=== PATIENT | male | born 1990 | race Caucasian/White ===

== ENCOUNTER 2024-07-16 11:11 | Outpatient (AMB) | payer OTHER, SELFPAY ==
--- NOTE | 2024-07-16 11:12 | A.OFFPC_ITS ---
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 Intake Note: patient here for new patient visit Maxillofacial Pathology Required: No Allergies No Known Allergies Allergy (Verified 07/16/24 12:19) Medication List - Last Reconciled 07/16/24 by Huseyin Ramos CNP No Known Home Meds Tobacco use date assessed: 07/16/24 Dental Screening Dental Screen Date: 07/16/24 Did you have a dental visit in the last 12 months?: No Did you have a dental problem in the last 6 months where you did not have access to dental care?: No Was dental information given to patient?: Patient has dentist HPI HPI Comments History of Present Illness Details 33-year-old male presents to establish c are. Prior PCP? - [facility] Last office visit/CPE/labs - 10 years ago Acute issue(s) - Hypertension: Have never been on antih ypertensives. No history of headache or visual disturbances with his elevated blood pressures. He believes his elevated blood pressure is stress induced. - Anxiety and depression: Reports contro lled anxiety and depression symptoms. History of SSRI until 8-9 years ago. Does not follow by a therapist or psychiatrist and does not have a history with them; he does not want a referral for both at this time. He declines psychotropic medication at this time. - No acute symptoms at this time. Past Medical History - hypertension, GERD, IBS, anxiety, depr ession, alcohol use disorder, opioids abuse, tendinitis left hand, myopia (wears contact) Surgical History - Left hand/tendinitis repair Family History - Dad: Colon cancer - Mom: Hypertension, hyperlipidemia - MGF: Alcohol use disorder, diabetes, hypertension, hyperlipidemia - MGM: Diabetes, hypertension, hyperlip idemia - PGF: Cardiovascular disease, diabetes , hyperlipidemia Social History - Former cigarettes smoker, 1-2 pack x 1 5 years, quit 2 years ago. Vapes nicotine daily. Use nicotine pouches daily. Drinks 6-12 beers and occasional shots vodka nightly, has been drinking this much for the past 1-2 years, has been drinking for a total of 15 years. Smokes 2 g cannabis daily - Has been making healthy dietary choice s, however, he consumes processed foods which are high in sodium. Walks daily. Does not generally sleep well due to having a 4-year-old son who keeps him awake at night Health maintenance - Last eye exam was 6 months ago. Does n ot recall name of eye doctor or practice. He will sign a release for his PCP to obtain his eye record - Last dental visit was over a years ago ; encouraged to schedule an appointment with his dentist for routine dental care. He has a dental appointment in the next few months - Last tetanus vaccine was 6-10 years ag o; He will review his record and update vaccine as needed - Has not been vaccinated for the flu season; declines vaccination [facility] Medical History (Updated 07/16/24 @ 15:00 by Huseyin Ramos CNP) Tendinitis Drug addiction Alcohol abuse Depression Anxiety Acid reflux IBS (irritable bowel syndrome) High blood pressure Family History (Updated 07/16/24 @ 11:33 by Feli Samaniego) Maternal Grandfather Alcohol abuse High blood pressure High cholesterol Diabetes Mother High blood pressure High cholesterol Maternal Grandmother High blood pressure High cholesterol Diabetes Paternal Grandfather High cholesterol Diabetes Cardiovascular disease Father Colon cancer Social History (Updated 07/16/24 @ 11:35 by Feli Samaniego) Housing: House Patient Tobacco Use Status: Former Tobacco user Cigarette Packs Per Day: 1 Cigarettes Per Day: 20 Years Smoked: 10 plus e-Cigarette/Vaping Use: Currently Using Second Hand Smoke Exposure: No Substance Use Type: Marijuana and Opiates service: No Current occupational status: employed Current occupation: [employer] Current occupational exposures/hazards: No Cognitive needs: No Hearing needs: No Vision needs: No Questionnaire PHQ-9 Over the last 2 weeks, how often have you been bothered by any of the following problems? 1. Little interest or pleasure in doing things: several days 2. Feeling down, depressed, or hopeless: several days 3. Trouble falling or staying asleep, or sleeping too much: several days 4. Feeling tired or having little energy: more than half the days 5. Poor appetite or overeating: not at all 6. Feeling bad about yourself - or that you are a failure or have let yourself or your family down: not at all 7. Trouble concentrating on things, such as reading the newspaper or watching television: nearly every day 8. Moving or speaking so slowly that other people could have noticed. Or the opposite - being so fidgety or restless that you have been moving around a lot more than usual: not at all 9. Thoughts that you would be better off or of hurting yourself in some way: not at all Total score: 8 Depression Screening Interpretation: Positive Depression Screening Follow-up: Existing condition and Declines treatment Depression Screening Done: Yes 91250 - PHQ-9 Billing: Yes Source: Developed by Drs. Kyler Henderson, Silva Salas, Chucky Payne and colleagues, with an educational umang from [employer]. Thrive Questionnaire Date Thrive assessed: 07/16/24 I am a: Patient What is your living situation today?: I have a steady place to live Within the past 12 months, did the food you bought not last and you didn't have the money to get more?: Never true Within the past 12 months, did you worry whether your food would run out before you got money to buy more?: Never true Do you have trouble paying for medicines?: No Do you have trouble getting transportation to medical appointments?: No Do you have trouble paying your heating and electricity bill?: Yes Do you have trouble taking care of your child, family member or friend?: No Do you have trouble with day-to-day activities such as bathing, preparing meals, shopping, managing finances, etc.?: No Are you currently unemployed and looking for a job?: No Are you interested in more education?: No Please select the resources that you would like help with: None Currently or been in a relationship where the following occur: No concerns reported THRIVE Score: 1 AUDIT C Alcohol Use Questionnaire (AUDIT-C) 1. How often do you have a drink containing alcohol?: 4 or more times a week 2. How many drinks containing alcohol do you have on a typical day when you are drinking?: 7 to 9 (6-12 drinks) 3. How often do you have six or more drinks on one occasion?: Daily or almost daily Total Score: 11 Score Reviewed/Action Taken: Yes NATAN-7 AMB Questionnaire NATAN-7 Date NATAN - 7 assessed: 07/16/24 Feeling nervous, anxious, or on edge: 3 = Nearly every day Not being able to stop or control worryin = More than half the days Worrying too much about different things: 1 = Several days Trouble relaxin = Nearly every day Being so restless that it is hard to sit still: 1 = Several days Becoming easily annoyed or irritable: 3 = Nearly every day Feeling afraid as if something awful might happen: 0 = Not at all Total NATAN-7 score (0-4 normal; 5-9 mild; 10-14 moderate; 15-21 severe): 13 Source: Developed by Drs. Kyler Henderson, Silva Salas, Chucky Payne and colleagues, with an educational umang from [employer]. Review of Systems Const Details: Denies chills, Denies fatigue, Denies fever(s), Denies headache(s) and Denies weakness HEENT Denies change in vision, Denies dizziness, Denies headache(s), Denies hearing loss, Denies nasal congestion, Denies sinus pain, Denies sinus pressure and Denies sore throat Card Denies chest pain, Denies lightheadedness, Denies dyspnea and Denies other (palpitations) Resp Denies cough, Denies dyspnea and Denies wheezing GI Denies abdominal pain, Denies melena, Denies hematochezia, Denies change in bowel habits, Denies dyspepsia and Denies nausea Denies hematuria and Denies dysuria Musc Denies abnormal gait, Denies myalgias, Denies arthralgias, Denies numbness and Denies tingling Skin/Breast Denies rash, Denies unusual bruising and Denies wounds Neuro Denies abnormal gait, Denies dizziness, Denies headache(s), Denies memory loss, Denies numbness, Denies Sensory deficit (Neuro), Denies tingling and Denies weakness Psych Reports anxiety, Reports depression and Denies memory loss Endo Denies cold intolerance, Denies fatigue, Denies heat intolerance, Denies polydipsia and Denies polyuria Beto/Lymph Denies easy bleeding and Denies easy bruising Aller/Immun Denies wheezing Physical exam (Primary Care) Vital Signs: Last Vital Signs Temp 98.0 F 07/16/24 11:21 Pulse 76 07/16/24 12:42 Resp 16 07/16/24 11:21 BP 160/120 H 07/16/24 12:42 Pulse Ox 97 07/16/24 11:21 Oxygen Delivery Method Room Air 07/16/24 11:21 BMI result Body Mass Index 28.6 Tobacco/Smoking Status: Tobacco use Status Tobacco use date assessed 07/16/24 07/16/24 11:20 Patient Tobacco Use Status Former Tobacco user 07/16/24 11:35 e-Cigarette/Vaping Use Currently Using 07/16/24 11:35 PHQ-9: PHQ-9 Score PHQ-9: Total score 8 07/16/24 12:40 Depression Screening Interpretation: Positive Depression Screening Follow-up: Existing condition and Declines treatment Thrive Assessment: Date of Thrive Assessment Date Thrive assessed 07/16/24 07/16/24 11:15 Currently or been in a relationship where the following occur: No concerns reported Const Other: General: no acute distress, well developed, alert and awake Nutritional Appearance: well nourished Orientation/consciousness: patient oriented x3 HENMT Head: Yes normocephalic and Yes atraumatic Ears: hearing grossly normal bilaterally and TM's normal bilaterally General nose exam: Normal external nose present and Normal nares present Mouth: Normal oral and palatal mucosa present and moist mucous membranes Teeth and gingiva: dentition normal Throat: Yes oropharynx normal Eyes Pupils: Equal, round and reactive pupils present and Pupil accommodation reflex normal EOM: EOMs intact bilaterally Neck Neck: Yes normal visual inspection, Yes no lymphadenopathy and Yes trachea midline Thyroid: Thyroid normal Carotids: no bruits Lymphatic: no lymphadenopathy noted Chest Chest palpation & inspection: normal inspection of the chest Resp Effort & Inspection: normal respiratory effort Auscultation: clear to auscultation bilaterally Cardio Rate: regular rate Rhythm: regular rhythm Heart sounds: S1 normal heart sound present, S2 normal heart sound present, no gallops, no murmurs and no rubs Bruits: no abdominal aortic bruits and no carotid bruits GI Palpation (GI): No Abdominal aortic bruit present, Soft to palpation, nontender, No hepatosplenomegaly present and No Rebound tenderness present Auscultation: normal bowel sounds General: Yes no CVA tenderness Back/Spine/Pelvis Back: no CVA tenderness Cervical Spine: cervical ROM normal and No Cervical spine tenderness Thoracic/Lumbar Spine: thoraco-lumbar ROM normal, No pain with thoraco-lumbar ROM, No thoracic spinal tenderness and No lumbar spinal tenderness Skin General: warm and dry. Normal skin color. Normal skin turgor Lesions: no lesions Rashes: no rashes Trauma: no lacerations or abrasions Wounds: no wounds Nails: normal Neuro General: patient oriented x3, gait normal and CN's II-XI intact bilaterally Cranial nerves: Yes Equal, round and reactive pupils present Cognition (Neuro): normal cognition Gait exam (Neuro): Normal gait present Motor exam (neuro): 5/5 motor strength present throughout Sensory Exam: No Sensory deficit (Neuro) Deep tendon reflexes (DTR's): Right patellar reflex intensity grade: 2+ and Left patellar reflex intensity grade: 2+ Extrem General: Yes normal to inspection, No edema and No calf tenderness Psych Appearance: grossly normal Affect: normal affect Attitude: cooperative Thought process: Normal thought process present Office Procedures EKG Details: EKG today revealed sinus rhythm with left ventricular hypertrophy; normal QTC. 46696-Nevmbzfgpeqwgsovq, Complete Coding Level of Care Code New Pt Level 4 (11413) New Pt Prev Care 18-39yr(82622 Diagnoses Normal routine history and physical examination Z00.00 High blood pressure I10 Anxiety and depression F41.9; F32.A Alcohol use disorder F10.90 Engages in vaping Z72.89 Laboratory tests ordered as part of a complete physical exam (CPE) Z00.00 Left ventricular hypertrophy I51.7 CPT Codes EKG - CPT: 97852-Lofqulgqrujpsdmgu, Complete ([id number]) Additional Codes PHQ-9 - 06081 - PHQ-9 Billing: Yes ([id number]) Assessment & Plan Assessment & Plan (1) Normal routine history and physical examination: Code(s): Z00.00 - Encounter for general adult medical examination without abnormal findings Category: Medical Plan: No significant functional limitations noted. Continue current treatment regimen. Healthy diet and routine exercise encouraged. Advised to perform blood work and follow-up in a week for hypertension and labs review. Return sooner with symptoms or concerns. Verbalized understanding and agreed with treatment plan. (2) High blood pressure: Code(s): I10 - Essential (primary) hypertension Category: Medical Plan: Resting blood pressure is 160/120, above goal of less than 140/90. He has history of hypertension but has never been on antihypertensives. No history of headache or visual disturbances with his elevated blood pressures. He believes his elevated blood pressure is stress induced. Metoprolol 25 mg daily ordered; advised to take as prescribed. Instructed on the risks, benefits, and potential adverse reactions of the medication. Low-sodium diet encouraged. Return or go to the ED with severe headache or visual disturbances. Report dizziness or lightheadedness. Follow-up in 1 week or sooner with symptoms or concerns. Verbalized understanding and agreed with treatment plan. (3) Anxiety and depression: Code(s): F41.9 - Anxiety disorder, unspecified; F32.A - Depression, unspecified Category: Medical Plan: Controlled anxiety and depression symptoms. History of SSRI until 8-9 years ago. Does not follow by a therapist or psychiatrist and does not have a history with them; he does not want a referral for both at this time. He declines psychotropic medication at this time. Healthy diet and routine exercise encouraged. Follow-up with worsening or new symptoms. Verbalized understanding and agreed with the treatment plan. (4) Alcohol use disorder: Code(s): F10.90 - Alcohol use, unspecified, uncomplicated Category: Medical Plan: Drinks 6-12 beers and occasional shots vodka nightly, has been drinking this much for the past 1-2 years, has been drinking for a total of 15 years. Instructed on the health risks and complications of excessive alcohol intake, including liver disease elevated blood pressure; encouraged to stop or cut down his drinking to no more than 2 drinks a day or 7 a week. Declines referral to [facility] comprehensive care to help with alcohol use and notes that he will cut down drinking. Follow-up as needed. Verbalized understanding and agreed with the plan. (5) Engages in vaping: Code(s): Z72.89 - Other problems related to lifestyle Category: Medical Plan: He vapes nicotine daily. However, he uses nicotine pouches daily to help with nicotine cessation. Instructed on the health risks and complications of vaping and nicotine use. Declines treatment for nicotine use at this time and notes that he will continue to use nicotine pouches. Encouraged to avoid vaping nicotine while using nicotine pouches as he will be getting significant amount of nicotine. Follow-up as needed. Verbalized understanding and agreed with treatment plan. (6) Laboratory tests ordered as part of a complete physical exam (CPE): Code(s): Z00.00 - Encounter for general adult medical examination without abnormal findings Category: Medical Plan: Fasting labs ordered as part of a complete physical exam. Advised to fast for at least 10 hours before getting labs drawn. May drink water Verbalized understanding and agreed with treatment plan. (7) Left ventricular hypertrophy: Code(s): I51.7 - Cardiomegaly Category: Medical Plan: EKG today revealed sinus rhythm with left ventricular hypertrophy; normal QTC. Likely attributed to prolonged uncontrolled hypertension. Metoprolol started today. Encouraged to take as prescribed. Echocardiogram ordered. Will review results and make changes as needed. May refer to Cardiology. Verbalized understanding and agreed with the plan. Orders: Orders AMB EKG-In Office Today I10 - Essential (primary) hypertension Complete Blood Count Auto Diff Today Z00.00 - Encounter for general adult medical examination without abnormal findings Microalbumin, Random (w Creat) Today Z00.00 - Encounter for general adult medical examination without abnormal findings Comprehensive [place]. Panel Fast Today Z00.00 - Encounter for general adult medical examination without abnormal findings Lipid Panel Today Z00.00 - Encounter for general adult medical examination without abnormal findings TSH reflex Free T4 Today Z00.00 - Encounter for general adult medical examination without abnormal findings UA CC w/rflx Micro + Cult Today Z00.00 - Encounter for general adult medical examination without abnormal findings Vitamin D 25-OH Total Today Z00.00 - Encounter for general adult medical examination without abnormal findings CA echo transthoracic complete Today I10 - Essential (primary) hypertension, I51.7 - Cardiomegaly Medications: New metoprolol tartrate 25 mg PO DAILY 30 days 30 tabs 3RF
[2024-07-16 11:21] VITALS: BP 168/104; PULSE 76; RESP 16; TEMP 36.7; O2SAT 97; BMI 28.6
--- OUTSIDE RECORDS SUMMARY | 2024-07-16 12:21 | XMS_ITS | Clinical Summary ---
Author Organization [facility] Address [address] [place] [address] Care Team Providers Care Resident Caregiver Name Role Phone Rosa Isela Malone Primary Care Provider [phone] Allergies No known active allergies Medications Medication Sig Dispensed Refills Start Date End Date Status ofloxacin (OCUFLOX) 0.3 % ophthalmic solutionIndications:Ac sarah conjunctivitis of both eyes, unspecified acute conjunctivitis type Use 1-2 drops in each eye every 2-4 hours for 2 days, then 1-2 drops every 4 hours for 5 days 10 mL 06/08/2023 Active benzonatate (TESSALON) 200 MG capsuleIndications:Acu te bronchitis, unspecified organism Take 1 capsule (200 mg total) by mouth 3 (three) times a day as needed for cough. 20 capsule 03/26/2024 Active predniSONE (DELTASONE) 20 MG tabletIndications:Acut e bronchitis, unspecified organism Take 2 tablets (40 mg total) by mouth daily. Take 2 tablets daily for 5 days. With food. 10 tablet 03/26/2024 Active Active Problems No known active problems Social History Tobacco Use Types Packs/Day Years Used Date Smoking Tobacco: Former Cigarettes Smokeless Tobacco: Never Tobacco Cessation:Counseling Given: Not Answered Alcohol Use Standard Drinks/Week Comments Yes 0 (1 standard drink = 0.6 oz pur e alcohol) Sex and Gender Information Value Date Recorded Sex Assigned at Not on file Gender Identity Not on file Sexual Orientation Not on file Last Filed Vital Signs Vital Sign Reading Time Taken Comments Blood Pressure 158/93 03/26/2024 12:02 PM EDT Pulse 85 03/26/2024 12:02 PM EDT Temperature 37.3 ??C (99.1 ??F) 03/26/2024 12:02 PM E DT Respiratory Rate 18 03/26/2024 12:02 PM EDT Oxygen Saturation 97% 03/26/2024 12:02 PM EDT Inhaled Oxygen Concentration - - Weight 83.9 kg (185 lb) 03/26/2024 12:02 PM EDT Height 175.3 cm (5' 9 ) 03/26/2024 12:02 PM EDT Body Mass Index 27.32 03/26/2024 12:02 PM EDT Plan of Treatment Health Maintenance Due Date Last Done Comments Hepatitis C Virus Screening 1988 HIV Screening 2001 DTaP/Tdap/Td Vaccines (1 - Tdap) 11/02/2007 Hepatitis B Vaccines (1 of 3 - 19+ 3-dose series) 11/02/2007 Influenza Vaccine 12/25/2023 07/15/2018 COVID-19 Vaccine (2023-2 5 season) 2024 HPV Vaccines Aged Out No longer eligi ble based on patient's age to complete this topic Pneumococcal Vaccine: Pediat margaret (0-5 Years) and At-Risk Patients (6 to 49 Years) Aged Out No longer eligible b ased on patient's age to complete this topic Care Teams Resident Caregiver Relationship Specialty Start Date End Date Rosa Isela Malone PA [address] [place] [id number] PCP - General General Medicine 06/08/23
--- OUTSIDE RECORDS SUMMARY | 2024-07-16 12:21 | XMS_ITS | Encounter Summary ---
Author Organization [facility] Address [address] [place] [address] Care Team Providers Care Industrial Electrical Engineer Name Role Phone Rosa Isela Malone Primary Care Provider Encounter Details Date Type Department Care Team (Late st Contact Info) Description 03/26/2024 12:17 PM EDT Hospital Encounter [facility] [address] [place] [id number] Fransico Servin MD [address] [place] [address] Social History Tobacco Use Types Packs/Day Years Used Date Smoking Tobacco: Former Cigarettes Smokeless Tobacco: Never Alcohol Use Standard Drinks/Week Comments Yes 0 (1 standard drink = 0.6 oz pur e alcohol) Sex and Gender Information Value Date Recorded Sex Assigned at Not on file Gender Identity Not on file Sexual Orientation Not on file documented as of this encounter Plan of Treatment Not on file documented as of this encounter Procedures Procedure Name Priority Date/Time Associated Diagnosis Comments XR CHEST 2 VIEWS STAT 03/26/2024 12:2 7 PM EDT Acute bronchitis, unspecified organism documented in this encounter Results * XR Chest 2 views (03/26/2024 12:27 PM EDT) Anatomical Region Laterality Modality Chest Computed Radiogr aphy 03/26/2024 12:2 8 PM EDT Impressions 03/26/2024 12:29 PM EDT No acute cardiopulmonary findings. Narrative 03/26/2024 12:29 PM EDT EXAM: XR CHEST 2 VIEWS on 03/26/2024 12:17 PM REASON FOR EXAM: Worsening cough and chest congestion. COMPARISON: None. TECHNIQUE: PA and lateral views FINDINGS: HEART AND MEDIASTINUM: Within normal limits. VASCULARITY: Within normal limits. AIRWAYS: Trachea and central airways are unremarkable. LUNGS: Clear. PLEURAE: No pleural effusion or pneumothorax. BONES: Unremarkable. SOFT TISSUES: Soft tissues are unremarkable. Procedure Note Margarito Payne MD - 03/26/2024 EXAM: XR CHEST 2 VIEWS on 03/26/2024 12:17 PM REASON FOR EXAM: Worsening cough and chest congestion. COMPARISON: None. TECHNIQUE: PA and lateral views FINDINGS: HEART AND MEDIASTINUM: Within normal limits. VASCULARITY: Within normal limits. AIRWAYS: Trachea and central airways are unremarkable. LUNGS: Clear. PLEURAE: No pleural effusion or pneumothorax. BONES: Unremarkable. SOFT TISSUES: Soft tissues are unremarkable. IMPRESSION: No acute cardiopulmonary findings. Meera Tao PA-C IMG DIAGNOSTIC IM AGING ORDERABLES documented in this encounter Visit Diagnoses Not on filedocumented in this encounter Care Teams Industrial Electrical Engineer Relationship Specialty Start Date End Date Rosa Isela Malone PA [address] [place] [id number] PCP - General General Medicine 06/08/23 documented as of this encounter
--- OUTSIDE RECORDS SUMMARY | 2024-07-16 12:21 | XMS_ITS ---
Author Name [facility] Organization Unknown Problems Problem Status Onset Date Problem Type Date of Resoluti on Source Viral pharyngitis [facility] En[facility]
[2024-07-16 12:42] VITALS: BP 160/120; PULSE 76
== END 2024-07-16 13:11 | disposition home or self-care (01) ==
PROVIDERS: PCP Nurse Practitioner Family; Visit Provider Nurse Practitioner Family
DX: Z00.00 Encounter for general adult medical examination without abnormal findings (principal); I10 Essential (primary) hypertension; F41.9 Anxiety disorder, unspecified; F32.A Depression, unspecified; F10.90 Alcohol use, unspecified, uncomplicated; Z72.89 Other problems related to lifestyle; I51.7 Cardiomegaly

== ENCOUNTER → 2024-07-16 11:11 | Outpatient (BNVA) | payer OTHER, SELFPAY | PROVIDERS: PCP Nurse Practitioner Family; Visit Provider Nurse Practitioner Family | DX: Z00.00 Encounter for general adult medical examination without abnormal findings (principal); I11.9 Hypertensive heart disease without heart failure; F41.9 Anxiety disorder, unspecified; F32.A Depression, unspecified; F10.90 Alcohol use, unspecified, uncomplicated; Z72.89 Other problems related to lifestyle | CPT/HCPCS: 93005; 96127 ==

== ENCOUNTER 2024-07-29 08:23 | Outpatient (AMB) | payer OTHER, SELFPAY ==
--- NOTE | 2024-07-29 08:24 | MHC.PC.OV ---
Vital Signs 07/29/24 08:27 07/29/24 08:38 Height 5 ft 9 in Weight 189 lb 2 oz BMI 27.9 BP 150/97 H 140/100 H Blood Pressure Location Rt brachial Position Sitting Respiration 16 Pulse 63 68 Pulse Source Pulse Oximeter Auscultation Temp 97.8 F Temp Source Oral Pulse Oximetry (%) 96 Oxygen Delivery Method Room Air Intake Visit Reasons: follow up blood pressure Intake Note: patient here for HTN follow up Contract Administration Coordinator Required: No Allergies No Known Allergies Allergy (Verified 07/29/24 08:33) Medication List - Last Reconciled 07/29/24 by Huseyin Ramos CNP metoprolol tartrate 25 mg PO DAILY 30 days Tobacco use date assessed: 07/29/24 Dental Screening Dental Screen Date: 07/29/24 Did you have a dental visit in the last 12 months?: Yes Did you have a dental problem in the last 6 months where you did not have access to dental care?: No Was dental information given to patient?: Patient has dentist HPI HPI Comments History of Present Illness Details 33-year-old male presents for hypertension follow-up. He admits to taking metoprolol as prescribed without adverse reactions. He notes he has been making healthy dietary choices, including low-sodium diet. He is active but does not exercise routinely. He has not drank alcohol for the past 7 days. [facility] Medical History (Updated 07/16/24 @ 15:00 by Huseyin Ramos CNP) Tendinitis Drug addiction Alcohol abuse Depression Anxiety Acid reflux IBS (irritable bowel syndrome) High blood pressure Family History (Updated 07/16/24 @ 11:33 by Feli Samaniego) Maternal Grandfather Alcohol abuse High blood pressure High cholesterol Diabetes Mother High blood pressure High cholesterol Maternal Grandmother High blood pressure High cholesterol Diabetes Paternal Grandfather High cholesterol Diabetes Cardiovascular disease Father Colon cancer Social History (Updated 07/16/24 @ 11:35 by Feli Samaniego) Housing: House Patient Tobacco Use Status: Former Tobacco user Cigarette Packs Per Day: 1 Cigarettes Per Day: 20 Years Smoked: 10 plus e-Cigarette/Vaping Use: Currently Using Second Hand Smoke Exposure: No Substance Use Type: Marijuana and Opiates service: No Current occupational status: employed Current occupation: [employer] Current occupational exposures/hazards: No Cognitive needs: No Hearing needs: No Vision needs: No Questionnaire Thrive Questionnaire Date Thrive assessed: 07/15/24 I am a: Patient What is your living situation today?: I have a steady place to live Within the past 12 months, did the food you bought not last and you didn't have the money to get more?: Never true Within the past 12 months, did you worry whether your food would run out before you got money to buy more?: Never true Do you have trouble paying for medicines?: No Do you have trouble getting transportation to medical appointments?: No Do you have trouble paying your heating and electricity bill?: Yes Do you have trouble taking care of your child, family member or friend?: No Do you have trouble with day-to-day activities such as bathing, preparing meals, shopping, managing finances, etc.?: No Are you currently unemployed and looking for a job?: No Are you interested in more education?: No Please select the resources that you would like help with: None Currently or been in a relationship where the following occur: No concerns reported THRIVE Score: 1 NATAN-7 AMB Questionnaire NATAN-7 Date NATAN - 7 assessed: 07/16/24 Source: Developed by Drs. Kyler Henderson, Silva Salas, Chucky Payne and colleagues, with an educational umang from [employer]. Review of Systems Const Details: Const Denies chills, Denies fatigue, Denies fever(s), Denies headache(s) and Denies weakness ENT Denies dizziness and Denies headache(s) Card Denies chest pain, Denies lightheadedness, Denies dyspnea and Denies other (Palpitations) Resp Denies cough, Denies dyspnea, Denies wheezing and Denies other ( shortness of breath) GI Denies abdominal pain, Denies melena, Denies hematochezia, Denies change in bowel habits, Denies dyspepsia and Denies nausea Denies hematuria and Denies dysuria Musc Denies abnormal gait, Denies myalgias, Denies arthralgias, Denies numbness and Denies tingling Skin/Breast Denies rash, Denies unusual bruising and Denies wounds Neuro Denies abnormal gait, Denies dizziness, Denies headache(s), Denies memory loss, Denies numbness, Denies Sensory deficit (Neuro), Denies tingling and Denies weakness Psych Denies anxiety, Denies depression, Denies memory loss Endo Denies cold intolerance, Denies fatigue, Denies heat intolerance, Denies polydipsia and Denies polyuria Aller/Immun Denies wheezing Physical exam (Primary Care) Vital Signs: Last Vital Signs Temp 97.8 F 07/29/24 08:27 Pulse 63 07/29/24 08:27 Resp 16 07/29/24 08:27 BP 150/97 H 07/29/24 08:27 Pulse Ox 96 07/29/24 08:27 Oxygen Delivery Method Room Air 07/29/24 08:27 BMI result Body Mass Index 27.9 Tobacco/Smoking Status: Tobacco use Status Tobacco use date assessed 07/29/24 07/29/24 08:30 Patient Tobacco Use Status Former Tobacco user 07/29/24 08:26 e-Cigarette/Vaping Use Currently Using 07/29/24 08:26 Thrive Assessment: Date of Thrive Assessment Date Thrive assessed 07/15/24 07/29/24 08:26 Currently or been in a relationship where the following occur: No concerns reported Const Other: General: no acute distress and well developed Nutritional Appearance: well nourished Orientation/consciousness: patient oriented x3 HENMT Head: Yes normocephalic and Yes atraumatic Eyes General: appearance normal, both eyes and all related structures Pupils: Equal, round and reactive pupils present EOM: EOMs intact bilaterally Resp Effort & Inspection: normal respiratory effort Auscultation: clear to auscultation bilaterally Cardio Rate: regular rate Rhythm: regular rhythm Heart sounds: S1 normal heart sound present, S2 normal heart sound present, no gallops, no murmurs and no rubs GI Palpation (GI): No Abdominal aortic bruit present, Soft to palpation, nontender, No hepatosplenomegaly present and No Rebound tenderness present Auscultation: normal bowel sounds General: Yes no CVA tenderness Back/Spine/Pelvis Back: no CVA tenderness Cervical Spine: cervical ROM normal and No Cervical spine tenderness Thoracic/Lumbar Spine: thoraco-lumbar ROM normal, No pain with thoraco-lumbar ROM, No thoracic spinal tenderness and No lumbar spinal tenderness Extrem General: Yes normal to inspection, No edema and No calf tenderness Skin General: warm and dry. Normal skin color. Normal skin turgor Neuro General: patient oriented x3, gait normal and no focal neuro deficit Cranial nerves: Yes Equal, round and reactive pupils present Cognition (Neuro): normal cognition Gait exam (Neuro): Normal gait present Sensory Exam: No Sensory deficit (Neuro) Psych Appearance: grossly normal Affect: normal affect Attitude: cooperative Thought process: Normal thought process present Coding Level of Care Code Est Pt Level 3 (30891) Diagnoses High blood pressure I10 Assessment & Plan Assessment & Plan (1) High blood pressure: Code(s): I10 - Essential (primary) hypertension Category: Medical Plan: Resting blood pressure is 140/100, slightly above goal of less than 140/90. His blood pressure improved since his last visit and that may be related to metoprolol and cessation of alcohol intake. Routine exercise and low-sodium diet encouraged. Encouraged to continue to avoid alcohol consumption. Perform lab work 2-3 days before next visit. Follow-up in 2 weeks for hypertension and labs review or sooner with symptoms or concerns.
[2024-07-29 08:27] VITALS: BP 150/97; PULSE 63; RESP 16; TEMP 36.6; O2SAT 96; BMI 27.9
[2024-07-29 08:38] VITALS: BP 140/100; PULSE 68
--- OUTSIDE RECORDS SUMMARY | 2024-07-29 08:48 | XMS_ITS | Encounter Summary ---
Author Organization [facility] Address [address] [place] [address] Care Team Providers Care Outreach Nurse Name Role Phone Rosa Isela Malone Primary Care Provider Encounter Details Date Type Department Care Team (Late st Contact Info) Description 03/26/2024 12:17 PM EDT Hospital Encounter [facility] [address] [place] [id number] Fransico Servin MD [address] [place] [address] Social History Tobacco Use Types Packs/Day Years [...] on filedocumented in this encounter Care Teams Outreach Nurse Relationship Specialty Start Date End Date Rosa Isela Malone PA [address] [place] [id number] PCP - General General Medicine 06/08/23 documented as of this encounter
--- OUTSIDE RECORDS SUMMARY | 2024-07-29 08:48 | XMS_ITS | Clinical Summary ---
Author Organization [facility] Address [address] [place] [address] Care Team Providers Care Technical Sales Consultant Name Role Phone Rosa Isela Malone Primary Care Provider [phone] Allergies No known active allergies Medications Medication Sig Dispensed Refills Start Date End Date Status ofloxacin (OCUFLOX) 0.3 % ophthalmic solutionIndications:Ac [place] conjunctivitis of both eyes, unspecified acute conjunctivitis [...] age to complete this topic Care Teams Technical Sales Consultant Relationship Specialty Start Date End Date Rosa Isela Malone PA [address] [place] [id number] PCP - General General Medicine 06/08/23
== END 2024-07-29 08:45 | disposition home or self-care (01) ==
PROVIDERS: PCP Nurse Practitioner Family; Visit Provider Nurse Practitioner Family
DX: I10 Essential (primary) hypertension (principal)

== ENCOUNTER → 2024-07-29 08:23 | Outpatient (BNVA) | payer OTHER, SELFPAY | PROVIDERS: PCP Nurse Practitioner Family; Visit Provider Nurse Practitioner Family ==

== ENCOUNTER → 2024-08-13 09:58 | Outpatient (REF) | payer OTHER, SELFPAY ==
--- NOTE | 2024-08-13 10:06 | CA_ITS ---
Transthoracic Echocardiogram Patient (Last, First, Middle): Artemio Rosenberg, Gender: Male Date of : 1990 Age: 33 Procedure Date: 08/13/2024 Procedure Type: Transthoracic Echocardiogram Location: OP Height: 175.26 cm Weight: 86.18 kg BSA: 2.02 m2 Heart Rate: 51 bpm BP: 150 / 102 mmHg Analytical Chemistry Teacher: TO Referring MD: Huseyin Ramos CNP Symptoms: I10 - Essential (primary) hypertension Study Quality: Adequate w contrast ECG Rhythm: Bradycardia Conclusions: - Normal left ventricular cavity size. There is normal left ventricular wall thickness. The left ventricular systolic function is low normal. The visually estimated ejection fraction is between 50-55%. There is no evidence of regional wall motion abnormalities. Diastolic function is normal for age. - Normal right ventricular cavity size and systolic function. - There is mild dilatation of the sinuses of Valsalva measuring 4.08 cm. Findings Procedure Information Contrast agent, definity, is being given per protocol without apparent complications. Left Ventricle Normal left ventricular cavity size. There is normal left ventricular wall thickness. The left ventricular systolic function is low normal. The visually estimated ejection fraction is between 50-55%. There is no evidence of regional wall motion abnormalities. Diastolic function is normal for age. Right Ventricle Normal right ventricular cavity size and systolic function. Atria The left atrium is normal in size. The right atrium is normal in size. Aortic Valve Normal aortic valve structure and function. There is no aortic valve stenosis. There is no aortic valve regurgitation. Mitral Valve The mitral valve appears normal. There is no mitral valve regurgitation. There is no mitral valve stenosis. Pulmonic Valve The pulmonic valve is normal. Tricuspid Valve Normal tricuspid valve structure. There is no tricuspid valve regurgitation. Tricuspid regurgitation envelope is inadequate for calculation of right ventricular systolic pressure. Normal right atrial pressure. Great Vessels There is mild dilatation of the sinuses of Valsalva measuring 4.08 cm. The visualized portions of the pulmonary artery and branches are normal. Venous The inferior vena cava is normal in size and collapses greater than 50% with inspiration. Pericardium/Pleural There is no evidence of pericardial effusion. Prior Study Comparison No prior study available for comparison. Measurements 2D Linear Measurements IVSd: 1.01 0.6-0.9/0.6-1.0 cm LVIDd: 5.20 3.9-5.3/4.2-5.9 cm LVIDd Index: 2.57 2.4-3.2/2.2-3.1 cm/m2 LVIDs: 3.78 2.0-3.6 cm LVPWd: 0.92 0.7-1.1 cm LA Diam: 3.50 2.7-3.8/3.0-4.0 cm LAIDs Index: 1.73 1.5-2.3 cm/m2 LV Mass: 231.21 67-162/88-224 g LV Mass Index: 114.46 43-95/49-115 g/m2 LVOT Diam: 2.40 3.0+(-)1.3 cm 2D Systolic Function EF 4C: 42.60 >55% EF 2C: 47.00 >55% EF BiP: 44.20 >55% Mitral Valve MV Pk E: 0.48 MV PK A: 0.33 MV Decel Time: 185.00 E/A: 1.40 E'Lateral: 8.70 E'Medial: 7.29 E/E' Med: 6.60 E/E' Lat: 5.50 PHT: 54.00 MVA PHT: 4.07 Decel Latimer: 2.60 Aortic Valve AoV Pk Armani: 1.05 AoV Mn Armani: 0.69 AoV VTI: 0.23 AoV Pk Grad: 4.00 Aov Mn Grad: 2.00 DAIN Cont.VTI: 3.28 LVOT LVOT Pk Armani: 0.83 LVOT Mn Armani: 0.58 LVOT VTI: 0.17 LVOT Pk Grad: 3.00 LVOT Mn Grad: 2.00 LVOT Diam: 2.40 LVOT Area: 4.52 Diastolic Function MV Pk E: 0.48 MV Pk A: 0.33 E/A: 1.40 E'Medial: 7.29 E/E' Med: 6.60 E' Laterial: 8.70 E/E' Lat: 5.50 Right Ventricle TAPSE (mm): 20.00 TVS' Armani: 9.68 Tricuspid Valve RA Press: 3.00 Great Vessels Aorta Sinus of Valsalva: 4.08 2.0-3.5 cm Ao Asc: 3.20 2.1-3.4 cm Updated in Other Vendor System with Status of Final Josue Carney MD electronically signed on 08/15/2024 10:53:37 PM with status of Final
--- OUTSIDE RECORDS SUMMARY | 2024-08-13 11:44 | XMS_ITS | Encounter Summary ---
Author Organization [facility] Address [address] [place] [address] Care Team Providers Care Waste Water Operator Name Role Phone Rosa Isela Malone Primary Care Provider [phone] Encounter Details Date Type Department Care Team (Late st Contact Info) Description 03/26/2024 12:17 PM EDT Hospital Encounter [facility] [address] [place] [id number] Fransico Servin MD [address] [place] [address] Social History Tobacco Use Types Packs/Day Years [...] on filedocumented in this encounter Care Teams Waste Water Operator Relationship Specialty Start Date End Date Rosa Isela Malone PA [address] [place] [id number] PCP - General General Medicine 06/08/23 documented as of this encounter
--- OUTSIDE RECORDS SUMMARY | 2024-08-13 11:44 | XMS_ITS | Clinical Summary ---
Author Organization [facility] Address [address] [place] [address] Care Team Providers Care News Gathering Technician Name Role Phone Rosa Isela Malone Primary Care Provider [phone] Allergies No known active allergies Medications Medication [...] age to complete this topic Care Teams News Gathering Technician Relationship Specialty Start Date End Date Rosa Isela Malone PA [address] [place] [id number] PCP - General General Medicine 06/08/23
== END ==
LOC: HO.CARD 09:58
PROVIDERS: PCP Nurse Practitioner Family; Visit Provider Nurse Practitioner Family
DX: I10 Essential (primary) hypertension (principal); I51.7 Cardiomegaly
CPT/HCPCS: 93306; Q9957

== ENCOUNTER → 2024-08-13 10:06 | Outpatient (BNV) | payer OTHER, SELFPAY | PROVIDERS: PCP Nurse Practitioner Family; Visit Provider Internal Medicine Cardiovascular Disease | DX: R94.31 Abnormal electrocardiogram [ECG] [EKG] (principal) | CPT/HCPCS: 93306 ==

== ENCOUNTER 2024-08-16 08:29 | Outpatient (REF) | payer OTHER, SELFPAY ==
[2024-08-16 11:24] LABS: MANUAL DIFF FLAG NO
[2024-08-16 11:53] LABS: Appearance Urine Clear; Color Urine Yellow; Glucose Urine UA Negative (Negative); Leukocyte Esterase Urine Negative (Negative); Nitrite Urine Negative (Negative); PH 5.5 (5.0-9.0); Specific Gravity - Urine 1.015 (1.005-1.025); Urine Blood Negative (Negative); Urine Ketones Negative (Negative); Urine Protein Negative (Neg-Trace)
[2024-08-16 11:57] LABS: Basophils Percent Auto 0.4 % (0-2); Eosinophils Absolute Auto 0.1 X10*3/uL (0.0-0.4); Eosinophils Percent Auto 0.9 % (0-4); Hematocrit 47.3 % (42.0-52.0); Hemoglobin 16.1 g/dl (14.0-18.0); Imm Gran Abs Auto 0.01 X10*3/uL (0.00-0.03); Imm Gran Pct Auto 0.2 % (0.0-0.4); Lymphocytes Absolute Auto 1.8 X10*3/uL (1.2-4.9); Mean Corpuscular Hemoglobin 30.7 pg (27.0-33.0); Mean Corpuscular Volume 90.3 fL (80.0-98.0); Mean Platelet Volume 11.3 fL (9.4-12.4); Monocytes Absolute Auto 0.5 X10*3/uL (0.1-1.2); Monocytes Percent Auto 8.5 % (2-11); Neutrophils Absolute Auto 3.2 x10*3/uL (2.0-8.3); Platelet Count 262 X10*3/uL (160-400); Red Blood Count 5.24 X10*6/uL (4.60-5.80); Red Cell Distribution Width 11.6 % (11.0-16.0); White Blood Count 5.5 X10*3/uL (4.8-10.8)
[2024-08-16 12:22] LABS: Alanine Aminotransferase 58 U/L (0-40); Albumin Level 4.5 g/dL (3.5-5.0); Alkaline Phosphatase 78 U/L (39-117); Anion Gap 10 (12-20); Aspartate Amino Transferase 39 U/L (5-37); Bilirubin Total 0.4 mg/dL (0.0-1.0); Blood Urea Nitrogen 14 mg/dL (9-16); Calcium 9.5 mg/dL (8.4-10.2); Carbon Dioxide 23 mmol/L (22-29); Chloride 109 mmol/L (96-108); Cholesterol 260 mg/dL (<200); Estimated Glomerular Filt Rate > 60; Glucose Fasting 103 mg/dL (60-99); HDL Cholesterol 45 mg/dL (>40); Sodium 138 mmol/L (135-145); Total Protein 7.6 g/dL (6.5-8.0); Triglycerides 413 mg/dL (<150)
[2024-08-16 12:35] LABS: Creatinine Urine 87.19 mg/dL; Microalbum/Creatinine Ratio Ur 14.9 ug/mg cr (<30)
[2024-08-16 12:40] LABS: TSH reflex Free T4 3.06 uIU/mL (0.32-4.0); Vitamin D 25-OH Total 25.6 ng/mL (>30)
[2024-08-17 04:43] LABS: LDL Cholesterol Direct 166 mg/dL (<100)
== END 2024-08-16 08:30 | disposition home or self-care (01) ==
LOC: HO.WFDLDS 08:29
PROVIDERS: Visit Provider Nurse Practitioner Family
DX: Z00.00 Encounter for general adult medical examination without abnormal findings (principal); E78.5 Hyperlipidemia, unspecified
CPT/HCPCS: 36415; 80053; 80061; 81003; 82043; 82306; 82570; 83721; 84443; 85025

== ENCOUNTER 2024-08-19 10:42 | Outpatient (AMB) | payer OTHER, SELFPAY ==
--- NOTE | 2024-08-19 10:46 | A.OFFPC_ITS ---
Vital Signs 08/19/24 10:52 08/19/24 11:09 Height 5 ft 9 in Weight 187 lb BMI 27.6 BP 138/88 136/100 H Blood Pressure Location Rt brachial Rt brachial Position Sitting Sitting Respiration 16 Pulse 72 76 Pulse Source Pulse Oximeter Auscultation Temp 98.3 F Temp Source Oral Pulse Oximetry (%) 98 Oxygen Delivery Method Room Air Intake Visit Reasons: 2 wks HTN, labs review Intake Note: patient here for follow up on HTN and lab review Deputy Clerk Of Court Required: No Allergies No Known Allergies Allergy (Verified 08/19/24 11:02) Medication List - Last Reconciled 08/19/24 by Huseyin Ramos CNP metoprolol tartrate 25 mg PO DAILY 30 days Tobacco use date assessed: 08/19/24 Dental Screening Dental Screen Date: 08/19/24 Did you have a dental visit in the last 12 months?: Yes Did you have a dental problem in the last 6 months where you did not have access to dental care?: No Was dental information given to patient?: Patient has dentist HPI HPI Comments History of Present Illness Details 33-year-old male presents for hypertensi on and review of recent lab results follow-up. He admits to taking metoprolol as prescribed without adverse reactions. He notes he has been making healthy dietary choices, including low-sodium diet. He has been drinking 1-2 beers every other day. He is active but does not exercise routinely. [facility] Medical History (Updated 08/19/24 @ 11:03 by Huseyin Ramos CNP) Tendinitis Drug addiction Alcohol abuse Depression Anxiety Acid reflux IBS (irritable bowel syndrome) High blood pressure Family History (Updated 07/16/24 @ 11:33 by Feli Samaniego MA) Maternal Grandfather Alcohol abuse High blood pressure High cholesterol Diabetes Mother High blood pressure High cholesterol Maternal Grandmother High blood pressure High cholesterol Diabetes Paternal Grandfather High cholesterol Diabetes Cardiovascular disease Father Colon cancer Social History (Updated 07/16/24 @ 11:35 by Feli Samaniego MA) Housing: House Patient Tobacco Use Status: Former Tobacco user Cigarette Packs Per Day: 1 Cigarettes Per Day: 20 Years Smoked: 10 plus e-Cigarette/Vaping Use: Currently Using Second Hand Smoke Exposure: No Substance Use Type: Marijuana and Opiates service: No Current occupational status: employed Current occupation: [employer] Current occupational exposures/hazards: No Cognitive needs: No Hearing needs: No Vision needs: No Questionnaire Thrive Questionnaire Date Thrive assessed: 07/15/24 I am a: Patient What is your living situation today?: I have a steady place to live Within the past 12 months, did the food you bought not last and you didn't have the money to get more?: Never true Within the past 12 months, did you worry whether your food would run out before you got money to buy more?: Never true Do you have trouble paying for medicines?: No Do you have trouble getting transportation to medical appointments?: No Do you have trouble paying your heating and electricity bill?: Yes Do you have trouble taking care of your child, family member or friend?: No Do you have trouble with day-to-day activities such as bathing, preparing meals, shopping, managing finances, etc.?: No Are you currently unemployed and looking for a job?: No Are you interested in more education?: No Please select the resources that you would like help with: None Currently or been in a relationship where the following occur: No concerns reported THRIVE Score: 1 NATAN-7 AMB Questionnaire NATAN-7 Date NATAN - 7 assessed: 07/16/24 Source: Developed by Drs. Kyler Henderson, Silva Salas, Chucky Payne and colleagues, with an educational umang from [employer]. Review of Systems Const Details: Const Denies chills, Denies fatigue, Denies fever(s), Denies headache(s) and Denies weakness ENT Denies dizziness and Denies headache(s) Card Denies chest pain, Denies lightheadedness, Denies dyspnea and Denies other (Palpitations) Resp Denies cough, Denies dyspnea, Denies wheezing and Denies other ( shortness of b reath) GI Denies abdominal pain, Denies melena, Denies hematochezia, Denies change in bowel habits, Denies dyspepsia and Denies nausea Denies hematuria and Denies dysuria Musc Denies abnormal gait, Denies myalgias, Denies arthralgias, Denies numbness and Denies tingling Skin/Breast Denies rash, Denies unusual bruising and Denies wounds Neuro Denies abnormal gait, Denies dizziness, Denies headache(s), Denies memory loss, Denies numbness, Denies Sensory deficit (Neuro), Denies tingling and Denies weakness Psych Denies anxiety, Denies depression, Denies memory loss Endo Denies cold intolerance, Denies fatigue, Denies heat intolerance, Denies polydipsia and Denies polyuria Aller/Immun Denies wheezing Physical exam (Primary Care) Vital Signs: Last Vital Signs Temp 98.3 F 08/19/24 10:52 Pulse 72 08/19/24 10:52 Resp 16 08/19/24 10:52 BP 138/88 08/19/24 10:52 Pulse Ox 98 08/19/24 10:52 Oxygen Delivery Method Room Air 08/19/24 10:52 BMI result Body Mass Index 27.6 Tobacco/Smoking Status: Tobacco use Status Tobacco use date assessed 08/19/24 08/19/24 10:53 Patient Tobacco Use Status Former Tobacco user 08/19/24 10:48 e-Cigarette/Vaping Use Currently Using 08/19/24 10:48 Thrive Assessment: Date of Thrive Assessment Date Thrive assessed 07/15/24 08/19/24 10:48 Currently or been in a relationship where the following occur: No concerns reported Const Other: General: no acute distress and well developed Nutritional Appearance: well nourished Orientation/consciousness: patient oriented x3 HENMT Head: Yes normocephalic and Yes atraumatic Eyes General: appearance normal, both eyes and all related structures Pupils: Equal, round and reactive pupils present EOM: EOMs intact bilaterally Resp Effort & Inspection: normal respiratory effort Auscultation: clear to auscultation bilaterally Cardio Rate: regular rate Rhythm: regular rhythm Heart sounds: S1 normal heart sound present, S2 normal heart sound present, no gallops, no murmurs and no rubs GI Palpation (GI): No Abdominal aortic bruit present, Soft to palpation, nontender, No hepatosplenomegaly present and No Rebound tenderness present Auscultation: normal bowel sounds General: Yes no CVA tenderness Back/Spine/Pelvis Back: no CVA tenderness Cervical Spine: cervical ROM normal and No Cervical spine tenderness Thoracic/Lumbar Spine: thoraco-lumbar ROM normal, No pain with thoraco-lumbar ROM, No thoracic spinal tenderness and No lumbar spinal tenderness Extrem General: Yes normal to inspection, No edema and No calf tenderness Skin General: warm and dry. Normal skin color. Normal skin turgor Neuro General: patient oriented x3, gait normal and no focal neuro deficit Cranial nerves: Yes Equal, round and reactive pupils present Cognition (Neuro): normal cognition Gait exam (Neuro): Normal gait present Sensory Exam: No Sensory deficit (Neuro) Psych Appearance: grossly normal Affect: normal affect Attitude: cooperative Thought process: Normal thought process present Coding Level of Care Code Est Pt Level 4 (40088) Diagnoses High blood pressure I10 Hyperlipidemia E78.5 Transaminitis R74.01 Vitamin D deficiency E55.9 Elevated fasting glucose R73.01 Assessment & Plan Assessment & Plan (1) High blood pressure: Code(s): I10 - Essential (primary) hypertension Category: Medical Plan: Resting blood pressure is 136/100, above goal of less than 130/90. Will increase metoprolol to 25 mg daily; advised to take as prescribed. Low-sodium diet and routine exercise encouraged. Encouraged to continue cut down on alcohol intake. Follow-up in 2 months or sooner with symptoms or concerns. Verbalized understanding and agreed with treatment plan. (2) Hyperlipidemia: Code(s): E78.5 - Hyperlipidemia, unspecified Category: Medical Plan: Recent triglycerides, total cholesterol, and LDL direct levels are elevated, 413, 260, and 166 respectively, HDL levels normal. Advised to limit foods high in saturated fat and avoid foods high in trans fat. Routine exercise encouraged. Encouraged to cut down on alcohol intake. Fast for 10-12 hours, may drink water, and perform lipid panel blood work to 3 days before next visit. Follow-up in 2 months. Verbalized understanding and agreed with treatment plan. (3) Transaminitis: Code(s): R74.01 - Elevation of levels of liver transaminase levels Category: Medical Plan: Recent AST and ALT levels are slightly elevated, 39 and 58 respectively. Likely due to history of alcohol use or unhealthy diet. Routine exercise and healthy diet, including low-fat encouraged. Encouraged to cut down on alcohol intake. Will recheck lipid panel in 2 months. Verbalized understanding and agreed with the plan. (4) Vitamin D deficiency: Code(s): E55.9 - Vitamin D deficiency, unspecified Category: Medical Plan: Recent vitamin-D level is slightly low, 25.6. Vitamin D3 1000 units daily ordered; advised to take as prescribed. Will recheck vitamin-D level in 2 months. Verbalized understanding and agreed with the plan. (5) Elevated fasting glucose: Code(s): R73.01 - Impaired fasting glucose Category: Medical Plan: Recent fasting glucose is slightly elevated, 103. Will recheck fasting glucose and make changes as needed. Verbalized understanding and agreed with the plan. Orders: Orders Lipid Panel 2 Months E78.5 - Hyperlipidemia, unspecified Glucose Fasting 2 Months R73.01 - Impaired fasting glucose Liver Panel 2 Months R74.01 - Elevation of levels of liver transaminase levels Vitamin D 25-OH Total 2 Months E55.9 - Vitamin D deficiency, unspecified Medications: New cholecalciferol (vitamin D3) 25 mcg PO DAILY 30 days 30 tabs 3RF metoprolol tartrate 50 mg PO DAILY 30 days 30 tabs 3RF Discontinued metoprolol tartrate Discontinued Reason: Doctor's Order 25 mg PO DAILY 30 days 30 tabs 3RF
[2024-08-19 10:52] VITALS: BP 138/88; PULSE 72; RESP 16; TEMP 36.8; O2SAT 98; BMI 27.6
[2024-08-19 11:09] VITALS: BP 136/100; PULSE 76
--- OUTSIDE RECORDS SUMMARY | 2024-08-19 14:03 | XMS_ITS | Encounter Summary ---
Author Organization Formerly [facility] Address [address] [place] [address] Care Team Providers Care Upholsterer Inside Name Role Phone Rosa Isela Malone Primary Care Provider [phone] Encounter Details Date Type Department Care Team (Late st Contact Info) Description 03/26/2024 12:17 PM EDT Hospital Encounter [facility] [address] [place] [id number] Fransico Servin MD [address] [place] [address] Social History Tobacco Use Types Packs/Day Years [...] on filedocumented in this encounter Care Teams Upholsterer Inside Relationship Specialty Start Date End Date Rosa Isela Malone PA [address] [place] [id number] PCP - General General Medicine 06/08/23 documented as of this encounter
--- OUTSIDE RECORDS SUMMARY | 2024-08-19 14:03 | XMS_ITS | Clinical Summary ---
Author Organization [facility] Address [address] [place] [address] Care Team Providers Care Endoscope Technician Name Role Phone Rosa Isela Malone Primary Care Provider [phone] Allergies No known active allergies Medications Medication [...] age to complete this topic Care Teams Endoscope Technician Relationship Specialty Start Date End Date Rosa Isela Malone PA [address] [place] [id number] PCP - General General Medicine 06/08/23
--- OUTSIDE RECORDS SUMMARY | 2024-08-19 14:03 | XMS_ITS | Clinical Summary ---
Author Organization [facility] Address [address] [place] [address] Care Team Providers Care Head Host/Hostess Name Role Phone Karen Rodriguez MD Primary Care Provider [phone] Allergies No known active allergies Medications Medication Sig Dispensed Refills Start Date End Date Status ibuprofen (ADVIL,MOTRIN) 600 MG tablet Take 600 mg by mouth every 6 hours as needed. 0 Active Active Problems Problem Noted Date Lyme disease 12/04/2016 History of mixed drug abuse 09/03/2016 Immunizations Name Administration Dates Next Due Influenza Vaccine-preservati ve Free-quadrivalent 4 Years 07/15/2018 Family History Medical History Relation Name Comments Other Father gerd Other Mother hypertension, d oesnt know much about her medical history Other Paternal Grandmother doesnt know medical history of grand parents CA Breast Negative Hx CA Colon Negative Hx Relation Name Status Comments Father Alive Maternal Grandfather Maternal Grandmother Mother Alive Paternal Grandfather Paternal Grandmother Alive Social History Tobacco Use Types Packs/Day Years Used Date Smoking Tobacco: Every Day Cigarettes 1 10 Smokeless Tobacco: Never Tobacco Cessation:Ready to Q uit: No; Counseling Given: Yes Alcohol Use Standard Drinks/Week Comments No 0 (1 standard drink = 0.6 oz pur e alcohol) not drinking since last 3 yrs Sex Assigned at Date Recorded Not on file Last Filed Vital Signs Vital Sign Reading Time Taken Comments Blood Pressure 159/99 09/03/2018 10:02 AM EDT AV ERAGE Pulse 74 09/03/2018 9:57 AM EDT Temperature 36.6 ??C (97.9 ??F) 09/03/2018 9:57 AM ED T Respiratory Rate 18 09/03/2018 9:57 AM EDT Oxygen Saturation - - Inhaled Oxygen Concentration - - Weight 82.8 kg (182 lb 9.6 oz) 09/03/2018 9:57 A M EDT Height 175.3 cm (5' 9 ) 09/03/2018 9:57 AM EDT Body Mass Index 26.97 09/03/2018 9:57 AM EDT Plan of Treatment Health Maintenance Due Date Last Done Comments Covid-19 Vaccine (#1) 05/03/1989 TOBACCO CHECK/ADVISE 09/03/2020 09/03/2018, 07/15/19 BASELINE HEALTH EXAM 18-39 07/15/2023 07/15/2018 DTAP/TDAP/TD (2 - Td or Tdap) 07/15/2023 (External Completion of Vaccination per patient) CHOLESTEROL SCREENING 09/04/2023 09/03/2018 INFLUENZA (#1) 2024 07/15/2018 BMI CHECK/ADVISE 05/26/2024 07/15/2018, 07/15/2018 PNEUMOCOCCAL VACCINE FOR HIG H RISK PATIENTS (#1) 2053 Care Teams Head Host/Hostess Relationship Specialty Start Date End Date Karen Rodriguez MD [address] [place] [id number] PCP - General Internal Medicine 07/01/16
== END 2024-08-19 11:17 | disposition home or self-care (01) ==
LOC: HO.HMCFM 10:43
PROVIDERS: PCP Nurse Practitioner Family; Visit Provider Nurse Practitioner Family
DX: I10 Essential (primary) hypertension (principal); E78.5 Hyperlipidemia, unspecified; R74.01 Elevation of levels of liver transaminase levels; E55.9 Vitamin D deficiency, unspecified; R73.01 Impaired fasting glucose

== ENCOUNTER → 2024-08-19 10:42 | Outpatient (BNVA) | payer OTHER, SELFPAY | PROVIDERS: PCP Nurse Practitioner Family; Visit Provider Nurse Practitioner Family ==